=== PATIENT | female | born 1980 ===

== ENCOUNTER 2017-02-18 18:37 | Emergency (ER) | payer OTHER ==
[2017-02-18 18:38] VITALS: BMI 24.7
[2017-02-18 18:43] VITALS: BP 112/77; PULSE 87; RESP 18; TEMP 98.4; O2SAT 100
--- NOTE | 2017-02-18 19:29 | C.PDOC ---
History Of Present Illness 36 year old complains of malaise, sore throat, generalized body aches for 4 days. Denies any fever, chest pain or SOB. Time Seen by Provider: 02/18/17 19:14 Chief Complaint (Nursing): Flu-like Symptoms History Per: Patient, Family History/Exam Limitations: no limitations Onset/Duration Of Symptoms: Days (4) Current Symptoms Are (Timing): Still Present Location Of Pain: Throat, Diffuse Myalgias, Headache Associated Symptoms: Sore Throat Ear Symptoms: Bilateral: None Past Medical History Reviewed: Historical Data, Nursing Documentation, Vital Signs Vital Signs: Last Vital Signs Temp 98.4 F 02/18/17 18:40 Pulse 87 02/18/17 18:40 Resp 18 02/18/17 18:40 BP 112/77 02/18/17 18:40 Pulse Ox 100 02/18/17 19:31 - Medical History PMH: No Chronic Diseases Surgical History: Appendectomy - [facility] Procedures MEASUREMENT OF ARTERIAL PRESSURE, PERIPHERAL, PERC APPROACH (07/03/15) MEASUREMENT OF CARDIAC RHYTHM, PERCUTANEOUS APPROACH (07/03/15) Family History: States: Unknown Family Hx - Social History Hx Tobacco Use: No Hx Alcohol Use: No Hx Substance Use: No - Immunization History Hx Tetanus Toxoid Vaccination: No Hx Influenza Vaccination: No Hx Pneumococcal Vaccination: No Review Of Systems Constitutional: Positive for: Malaise. Negative for: Fever, Weakness ENT: Positive for: Nose Congestion, Throat Pain. Negative for: Ear Pain Cardiovascular: Negative for: Chest Pain, Palpitations Respiratory: Negative for: Cough, Shortness of Breath Gastrointestinal: Negative for: Vomiting, Abdominal Pain, Diarrhea Genitourinary: Negative for: Dysuria Musculoskeletal: Negative for: Neck Pain, Shoulder Pain Skin: Negative for: Rash Neurological: Negative for: Headache, Dizziness Physical Exam - Physical Exam Appears: Non-toxic, No Acute Distress Skin: Warm, Dry, No Rash Head: Atraumatic, Normacephalic, No Tenderness, No Swelling Eye(s): bilateral: Normal Inspection, EOMI Nose: Normal Oral Mucosa: Moist Throat: Erythema, No Exudate, No Drooling, Other (mild tonsillar swelling, uvula midline) Neck: Normal ROM, Supple Chest: Symmetrical Cardiovascular: Rhythm Regular, No Murmur Respiratory: Normal Breath Sounds, No Accessory Muscle Use, No Rhonchi, No Wheezing Extremity: Bilateral: Atraumatic, Normal Color And Temperature, Normal ROM Neurological/Psych: Oriented x3, Normal Speech Gait: Steady ED Course And Treatment O2 Sat by Pulse Oximetry: 100 Medical Decision Making Medical Decision Making: Impression: Symptoms c/w pharyngitis Plan: Amoxicillin Re-assess: Patient remained afebrile and in no acute distress. She is speaking full sentences, lungs clear bilaterally. Recommend motrin or tylenol for fever or pain and to follow up with PCP. 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
== END 2017-02-18 19:50 | disposition home or self-care (01) ==
LOC: C.ER 18:37
DX: J02.9 Acute pharyngitis, unspecified (principal)

== ENCOUNTER 2017-10-28 21:55 | Emergency (ER) | payer OTHER ==
[2017-10-28 21:55] VITALS: BMI 24.7
[2017-10-28 22:22] VITALS: BP 105/70; PULSE 83; RESP 20; TEMP 99.8; O2SAT 100
[2017-10-28 22:55] LABS: SQUAMOUS EPITHIAL < 1 /hpf (0-5); URINE BILIRUBIN NEGATIVE (NEGATIVE); URINE BLOOD NEGATIVE (NEGATIVE); URINE CLARITY Hazy (Clear); URINE COLOR Yellow (YELLOW); URINE GLUCOSE (UA) NORMAL (Normal); URINE LEUKOCYTE ESTERASE NEG Leu/uL (Negative); URINE NITRATE NEGATIVE (NEGATIVE); URINE PROTEIN NEGATIVE (NEGATIVE); URINE UROBILINOGEN NORMAL mg/dL (0.2-1.0)
[2017-10-28 22:56] LABS: HCG,QUALITATIVE URINE NEGATIVE (NEGATIVE)
--- NOTE | 2017-10-28 23:39 | C.PDOC ---
History Of Present Illness Patient is a 37 y/o female who presents complaining of right groin pain radiating to the right mid-thigh, for the last 2 days. Denies any injury/trauma , abdominal pain, or UTI symptoms. Patient took diclofenac at home with no relief. PMD: Dr. Christina Stover Time Seen by Provider: 10/28/17 22:34 Chief Complaint (Nursing): Abdominal Pain History Per: Patient History/Exam Limitations: no limitations Onset/Duration Of Symptoms: Days (x2) Current Symptoms Are (Timing): Still Present Past Medical History Reviewed: Historical Data, Nursing Documentation, Vital Signs Vital Signs: Last Vital Signs Temp 99.8 F H 10/28/17 22:17 Pulse 83 10/28/17 22:17 Resp 20 10/29/17 00:44 BP 105/70 10/28/17 22:17 Pulse Ox 100 10/29/17 01:45 - Medical History PMH: Denies: Asthma, Chronic Kidney Disease Surgical History: Appendectomy - [facility] Procedures MEASUREMENT OF ARTERIAL PRESSURE, PERIPHERAL, PERC APPROACH (07/03/15) MEASUREMENT OF CARDIAC RHYTHM, PERCUTANEOUS APPROACH (07/03/15) Family History: States: Unknown Family Hx - Social History Hx Tobacco Use: No Hx Alcohol Use: No Hx Substance Use: No - Immunization History Hx Tetanus Toxoid Vaccination: No Hx Influenza Vaccination: No Hx Pneumococcal Vaccination: No Review Of Systems Except As Marked, All Systems Reviewed And Found Negative. Gastrointestinal: Negative for: Abdominal Pain Genitourinary: Negative for: Dysuria, Frequency, Hematuria Musculoskeletal: Positive for: Leg Pain (right groin radiating to right thigh) Physical Exam - Physical Exam Appears: Non-toxic, No Acute Distress Skin: Normal Color, Warm, Dry Head: Atraumatic, Normacephalic Eye(s): bilateral: Normal Inspection, PERRL, EOMI Oral Mucosa: Moist Chest: Symmetrical Cardiovascular: Rhythm Regular Respiratory: No Accessory Muscle Use Gastrointestinal/Abdominal: Normal Exam, Soft, No Tenderness Back: Normal Inspection Extremity: Tenderness (Tenderness to right inguinal area. Tenderness on palpation of right inner thigh, and right anterior thigh. No hip tenderness. No mass, erythema, or warmth), No Deformity, Other (Ambulatory but with some pain of motion to right hip and thigh) Extremity: Bilateral: Atraumatic, Normal Color And Temperature Neurological/Psych: Oriented x3, Normal Speech, Normal Motor, Normal Sensation Gait: Steady (but with pain) ED Course And Treatment O2 Sat by Pulse Oximetry: 100 (RA) Pulse Ox Interpretation: Normal Progress Note: Patient given Toradol IM and Valium PO. On reevaluation, patient reports improvement and is ambulatory. Stable for discharge home. Disposition Counseled Patient/Family Regarding: Diagnosis, Need For Followup, Rx Given - Disposition Referrals: Christina Stover MD [Medical Doctor] - Disposition: HOME/ ROUTINE Disposition Time: 23:39 Condition: STABLE Additional Instructions: Please follow up with PMD or in clinic Take meds as directed Return to ER if worse Prescriptions: Cyclobenzaprine [Cyclobenzaprine HCl] 10 mg PO BID #10 tab Naproxen [Naprosyn] 1 tab PO BID PRN #25 tab PRN Reason: Pain Instructions: Groin Pain (ED) Forms: [employer] (Greek), Work Excuse Print Language: TURKISH - POA Present On Arrival: None - Clinical Impression Clinical Impression: Right groin pain - 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 - Scribe Statement The provider has reviewed the documentation as recorded by the Scribe (Susan Montero) All medical record entries made by the Scribe were at my direction and personally dictated by me. I have reviewed the chart and agree that the record accurately reflects my personal performance of the history, physical exam, medical decision making, and the department course for this patient. I have also personally directed, reviewed, and agree with the discharge instructions and disposition.
== END 2017-10-29 00:44 | disposition home or self-care (01) ==
LOC: C.ER 21:55
DX: R10.31 Right lower quadrant pain (principal)
CPT/HCPCS: 81001; 84703; 96372; 99284; J1885

== ENCOUNTER 2018-02-04 15:03 | Emergency (ER) | payer MEDICAID ==
[2018-02-04 15:03] VITALS: BMI 24.7
[2018-02-04 15:18] VITALS: BP 120/77; PULSE 66; RESP 20; TEMP 98.1; O2SAT 100
--- NOTE | 2018-02-04 16:34 | C.PDOC ---
Time Seen by Provider: 02/04/18 15:46 Chief Complaint (Nursing): Cough, Cold, Congestion History Per: Patient Onset/Duration Of Symptoms: Days (3) Current Symptoms Are (Timing): Still Present Associated Symptoms: Cough, Nasal Congestion Severity: Mild Additional History Per: Prior Records Past Medical History Reviewed: Historical Data, Nursing Documentation, Vital Signs Vital Signs: Last Vital Signs Temp 98.1 F 02/04/18 15:17 Pulse 66 02/04/18 15:17 Resp 20 02/04/18 15:17 BP 120/77 02/04/18 15:17 Pulse Ox 100 02/04/18 15:17 - Medical History PMH: Asthma Surgical History: Appendectomy - [facility] Procedures MEASUREMENT OF ARTERIAL PRESSURE, PERIPHERAL, PERC APPROACH (07/03/15) MEASUREMENT OF CARDIAC RHYTHM, PERCUTANEOUS APPROACH (07/03/15) Family History: States: Unknown Family Hx - Social History Hx Tobacco Use: No Hx Alcohol Use: No Hx Substance Use: No - Immunization History Hx Tetanus Toxoid Vaccination: No Hx Influenza Vaccination: No Hx Pneumococcal Vaccination: No Review Of Systems Except As Marked, All Systems Reviewed And Found Negative. Constitutional: Negative for: Fever, Weakness ENT: Positive for: Nose Congestion Cardiovascular: Negative for: Chest Pain Respiratory: Positive for: Cough. Negative for: Shortness of Breath Gastrointestinal: Negative for: Vomiting, Abdominal Pain Musculoskeletal: Negative for: Neck Pain Skin: Negative for: Rash Neurological: Negative for: Weakness, Numbness Physical Exam - Physical Exam Appears: Non-toxic, No Acute Distress Skin: Normal Color, Warm, Dry, No Rash Head: Atraumatic, Normacephalic Eye(s): bilateral: Normal Inspection, PERRL, EOMI Neck: Normal ROM, Supple Cardiovascular: Rhythm Regular Respiratory: Normal Breath Sounds, No Accessory Muscle Use Gastrointestinal/Abdominal: Soft, No Tenderness Back: No CVA Tenderness Extremity: Normal ROM Neurological/Psych: Oriented x3, Normal Motor, Normal Sensation ED Course And Treatment O2 Sat by Pulse Oximetry: 100 Pulse Ox Interpretation: Normal Disposition Counseled Patient/Family Regarding: Diagnosis, Need For Followup, Rx Given - Disposition Referrals: Lilibeth Stover MD [Staff Provider] - Disposition: HOME/ ROUTINE Disposition Time: 16:38 Condition: STABLE Additional Instructions: Follow up with your doctor. Return to the ER if you develop shortness of breath , worsening of symptoms or if you have any other concerns. Prescriptions: Guaifenesin/Dextromethorphan [Mucinex Dm ER 1,200-60 mg Tab] 1 tab PO BID PRN # 14 tab.er.12h PRN Reason: Cough And Congestion Oxymetazoline 0.05% [Oxymetazoline HCl 30 Ml] 2 sprays NS BID #1 bottle Instructions: Cough, Runny Nose, and the Common Cold (DC) Forms: [employer] (Frisian) Print Language: PANAMANIAN - Clinical Impression Clinical Impression: Upper respiratory infection
== END 2018-02-04 16:59 | disposition home or self-care (01) ==
LOC: C.ER 15:03
DX: J06.9 Acute upper respiratory infection, unspecified (principal)

== ENCOUNTER 2018-12-24 15:45 | Emergency (ER) | payer MEDICAID, OTHER ==
[2018-12-24 15:45] VITALS: BMI 47.4
[2018-12-24 15:57] VITALS: BP 121/80; PULSE 65; TEMP 98.4; O2SAT 100
[2018-12-24] MEDS ORDERED: Amoxicillin-Clav 875-125 mg Tab PO STA (16:39)
--- NOTE | 2018-12-24 16:54 | C.PDOC ---
History Of Present Illness 38 y/o female presents to the ED for medical evaluation of sore throat x 2 days with associated left otalgia, headache (5/10, nonradiating, generalized) and dry cough. Pt reports she drank tea with honey with no improvement but denies taking any oral medications. Pt denies fever, chills, dizziness, chest pain, SOB, nausea, vomiting, abdominal pain and diarrhea. Chief Complaint (Nursing): ENT Problem History Per: Patient History/Exam Limitations: no limitations Onset/Duration Of Symptoms: Days Current Symptoms Are (Timing): Still Present Past Medical History Reviewed: Historical Data, Nursing Documentation, Vital Signs Vital Signs: Last Vital Signs Temp 98.4 F 12/24/18 15:54 Pulse 65 12/24/18 15:54 Resp 17 12/24/18 15:54 BP 121/80 12/24/18 15:54 Pulse Ox 100 12/24/18 15:54 - Medical History PMH: Asthma Surgical History: Appendectomy - [facility] Procedures MEASUREMENT OF ARTERIAL PRESSURE, PERIPHERAL, PERC APPROACH (07/03/15) MEASUREMENT OF CARDIAC RHYTHM, PERCUTANEOUS APPROACH (07/03/15) Family History: States: Unknown Family Hx - Social History Hx Tobacco Use: No Hx Alcohol Use: No Hx Substance Use: No - Immunization History Hx Tetanus Toxoid Vaccination: No Hx Influenza Vaccination: Yes Hx Pneumococcal Vaccination: No Review Of Systems Constitutional: Negative for: Fever, Chills ENT: Positive for: Throat Pain, Other (left otalgia) Cardiovascular: Negative for: Chest Pain Respiratory: Positive for: Cough (dry). Negative for: Shortness of Breath Gastrointestinal: Negative for: Nausea, Vomiting, Abdominal Pain, Diarrhea Musculoskeletal: Negative for: Neck Pain Skin: Negative for: Rash Neurological: Positive for: Headache. Negative for: Dizziness Physical Exam - Physical Exam Appears: Non-toxic, No Acute Distress Skin: Warm, Dry, No Rash Head: Atraumatic, Normacephalic Eye(s): bilateral: Normal Inspection, PERRL Ear(s): Bilateral: Normal Nose: Normal, No Discharge Oral Mucosa: Moist Tongue: Normal Appearing Throat: Erythema, Exudate (on the right ), No Drooling, No Mass Neck: Normal ROM, Supple Chest: Symmetrical Cardiovascular: Rhythm Regular Respiratory: Normal Breath Sounds, No Accessory Muscle Use, No Wheezing Gastrointestinal/Abdominal: Soft, No Tenderness Neurological/Psych: Oriented x3, Normal Speech, Normal Motor, Normal Sensation ED Course And Treatment O2 Sat by Pulse Oximetry: 100 (RA) Pulse Ox Interpretation: Normal Medical Decision Making Medical Decision Making: Dx: Bacterial Upper Respiratory infection plans: -- amoxicillin and ibuprofen given now Patient advised to continue meds as instructed Recommend rest and Hydration Follow up with PMD in 1-2 days Patient verbalizes understanding and is in agreement with plan. Patient is stable for discharge. Disposition Counseled Patient/Family Regarding: Diagnosis, Need For Followup, Rx Given - Disposition Referrals: Moon Kaba [Staff Provider] - Disposition: HOME/ ROUTINE Disposition Time: 17:10 Condition: STABLE Additional Instructions: Please review handout for Bacterial Upper Respiratory infection Take meds as instructed Rest and Hydration Follow up with PMD in 1-2 days Return to ED if symptoms worsen Prescriptions: Amoxicillin/Clavulanate [Augmentin 875 MG-125 MG] 1 tab PO BID #19 tab Ibuprofen [Motrin] 600 mg PO Q8 PRN #30 tab PRN Reason: Pain, Moderate (4-7) Instructions: Bacterial Upper Respiratory Infection, Adult (DC) Forms: [employer] (Tajik) Print Language: LAO - Clinical Impression Clinical Impression: Pharyngitis, Sore throat, Cough - 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 - Scribe Statement The provider has reviewed the documentation as recorded by the Kamar Campos Do All medical record entries made by the Scribe were at my direction and personally dictated by me. I have reviewed the chart and agree that the record accurately reflects my personal performance of the history, physical exam, medical decision making, and the department course for this patient. I have also personally directed, reviewed, and agree with the discharge instructions and disposition.
--- NOTE | 2018-12-24 16:55 | C.PDOC ---
Chief Complaint (Nursing): ENT Problem Past Medical History Vital Signs: Last Vital Signs Temp 98.4 F 12/24/18 15:54 Pulse 65 12/24/18 15:54 Resp 17 12/24/18 15:54 BP 121/80 12/24/18 15:54 Pulse Ox 100 12/24/18 15:54 - Medical History PMH: Asthma Denies: Chronic Kidney Disease Surgical History: Appendectomy - [facility] Procedures MEASUREMENT OF ARTERIAL PRESSURE, PERIPHERAL, PERC APPROACH (07/03/15) MEASUREMENT OF CARDIAC RHYTHM, PERCUTANEOUS APPROACH (07/03/15) Family History: States: Unknown Family Hx - Social History Hx Tobacco Use: No Hx Alcohol Use: No Hx Substance Use: No - Immunization History Hx Tetanus Toxoid Vaccination: No Hx Influenza Vaccination: Yes Hx Pneumococcal Vaccination: No ED Course And Treatment O2 Sat by Pulse Oximetry: 100 Disposition Counseled Patient/Family Regarding: Diagnosis, Need For Followup, Rx Given - Disposition Referrals: Moon Kaba [Staff Provider] - Disposition: HOME/ ROUTINE Disposition Time: 16:59 Condition: STABLE Additional Instructions: Please review handout for Bacterial Upper Respiratory infection Take meds as instructed Rest and Hydration Follow up with PM Din 1-2 days Return to ED if symptoms worsen Prescriptions: Amoxicillin/Clavulanate [Augmentin 875 MG-125 MG] 1 tab PO BID #19 tab Ibuprofen [Motrin] 600 mg PO Q8 PRN #30 tab PRN Reason: Pain, Moderate (4-7) Instructions: Bacterial Upper Respiratory Infection, Adult (DC) Forms: [employer] (Iraqi) Print Language: MALTESE - Clinical Impression Clinical Impression: Pharyngitis, Sore throat, Cough
[2018-12-24] MEDS ORDERED: Amoxicillin-Clav 875-125 mg Tab PO ONE (16:56)
[2018-12-24 17:23] VITALS: RESP 18
== END 2018-12-24 17:21 | disposition home or self-care (01) ==
LOC: C.ER 15:45
DX: J02.9 Acute pharyngitis, unspecified (principal)